=== PATIENT | male | born 1955 | race African-American/Black ===

== ENCOUNTER → 2024-11-24 14:05 | Outpatient (REF) | payer MEDICARE, SELFPAY | LOC: HWRAD 14:05 | PROVIDERS: ATTENDING PHYSICIAN Student in an Organized Health Care Education/Training Program | DX: M79.672 Pain in left foot (principal) | CPT/HCPCS: 73630 ==

== ENCOUNTER → 2025-01-22 13:47 | Outpatient (REF) | payer MEDICARE, SELFPAY ==
--- NOTE | 2025-01-09 10:11 | PN.DIAED02 ---
Referral
DSME Class Series Code: [id number]
Referred For: Diabetes Self-Management Training, Medical Nutrition Therapy, Self-Blood Glucose Monitoring, Long-Term Complication Instruction, Accute Complication Instruction, Continuous Glucose Monitoring, Medication management, Insulin
Instruction, Care Coordination
PHI Release Authorization Form Signed: Yes
Patient Problems:
Current Active Problems
Problem Status Onset
Type 2 diabetes mellitus with unspecified complications
Demographic
(1) Type 2 diabetes mellitus with unspecified complications
Status: Acute Code(s): E11.8 - Type 2 diabetes mellitus with unspecified complications
Patient's primary language-: Maltese
Education: Advanced college degree
Occupation: Retired
- Social
Primary Support Person: Self
Primary Care Takers: Self
Living Arrangements: Self & spouse
- Learning Methods
Preferred Method: Group discussion
Barriers to Learning: None
Glycemic Control
- Blood Glucose Monitoring Assessment
Date: 05/08/25 (FBS: 109 mg/dL)
Blood glucose monitoring at home: No (Educated on a Onetouch meter-pt wants to buy his own)
- Hemoglobin A1c
Date: 01/04/25
A1C Percentage (%): 6.6
Medical History of Diabetes
Previous Diabetes Education: No
Complications/Comorbidity/Specialist: Hypertension (LISINOPRIL 40 MG DAILY), Hyperlipidemia (ROSUSUVASTATIN DAILY)
Measures
- Anthropometrics
Height: 6 ft 2 in
Actual Weight: 228 lb
- Blood Pressure / Pulse
Blood pressure: 129/78
Pulse: 62
- Diabetes Management
Medical Management for Diabetes: Complete physical exam (11/28/24), Dental exam (08/10/24), Dilated eye exam (12/22/24), Foot exam (12/10/24)
Self-Care
- Tobacco Usage
Do you now, or have you ever smoked?: Never smoked
- Alcohol & Drugs Usage
Amount/day: Social Occasions
- Meals & Dining
Meals & Dining: Patient skips meals: Yes, Food Intolerance / Allergy: No, Cultural / Anabaptism Dietary Needs: No
Primary Food Environmental Department Manager: Self
Primary Frozen Food Department Manager: Self
- Physical Activity
Physical Limitation: No
Patient participates in physical Activity: Yes
Activity Types: walking
Duration: > 50 minutes
Frequency: 3-5x per week
- Patient-Self Assessment
Diabetes Knowledge: Poor
Feelings About Diabetes: Fear
General Health: Good
Importance of Health: Extremely
Stress Level: Low
Diabetes Interferes With:: Nothing
Depression Survey Score: 0
- Diabetes Identification
Carries Diabetes Identification: No
Care Plan
- Education Needs
Patient Education Needs: Diabetes disease process, Chronic complications, Acute complications, Medication, Monitoring, Physical activity, Psychosocial Adjustment, Nutritional management, Goal setting & problem solving
Recommended Diabetes Training Program based on assessment: Outpatient Diabetes Education Program
- Plan of Care
Plan of Care:
Germán is attending the December 2024 DSME program along with is who also has diabetes. He was recently diagnosed on 01/04/25 with an A1c of 6.6 %. He has not discussed starting any diabetes medications with his provider at this time. I educated
him on how to monitor his blood sugar along with a monitoring schedule. He was hesitant to obtain the supplies for the OneTouch glucometer using his insurance and preferred to buy one on his own. Discussed over the counter options for glucometers
and encouraged him to contact the office once he purchases his meter if he needs assistance.
--- NOTE | 2025-01-09 12:23 | PN.DIAED04 ---
Education Record
- Education Record
Class Attended: Other (initial dsme assessment)
DSME Class Series Code: [id number]
Instructor: Registered Nurse (Alisha Beckford RN)
Pre-Program Knowledge: Needs review / Assistance
Pre-Test Score (%): 23
Goals
- Goal 1
Being Active: Exercise more often
Goals To Be Evaluated: Exercise more often
- Goal 2
Healthy Eating: Reduce portion sizes
Goals To Be Evaluated: Reduce portion sizes
- Goal 3
Monitoring: Follow monitoring schedule
Goals To Be Evaluated: Follow monitoring times
--- NOTE | 2025-01-24 14:42 | PN.DIAED14 ---
This is to notify you that your patient with diabetes, JIM ESPINOSA ( 1955), has enrolled in our diabetes self-management classes that are being held at [facility].
These classes will include an introduction to diabetes, diet, medication, exercise and prevention of complications. At the end of our class series, you will receive a report of your patient's participation and progress for your records.
Please contact me at the Diabetes Center, , if there is any particular information regarding your patient that might be helpful to me.
Sincerely,
Arie TREJO-,[facility]
--- NOTE | 2025-01-24 14:43 | PN.DIAED04 ---
Education Record
- Education Record
Class Attended: Class 1
DSME Class Series Code: [id number]
Instructor: Nurse Practitioner (MAYA Sun)
Class Curriculum:
Outpatient Diabetes Education Program:
Class 1 (120 minutes)
Describe the diabetes disease process and treatment options
Diabetes management
Develop personal strategies to promote health and behavior change
Integrate psychosocial adjustment for daily living
Monitor blood glucose and other parameters. Interpret and use the results for self-management decision making
Prevent, detect, and treat acute complications
Class Length (mins): 120
Post-Class 1 Test Score (%): 94
== END ==
LOC: DES 13:47
PROVIDERS: ATTENDING PHYSICIAN Student in an Organized Health Care Education/Training Program
DX: E11.9 Type 2 diabetes mellitus without complications (principal)
CPT/HCPCS: 99078

== ENCOUNTER → 2025-01-29 10:17 | Outpatient (REF) | payer MEDICARE, SELFPAY ==
--- NOTE | 2025-01-30 15:47 | PN.DIAED04 ---
Education Record
- Education Record
Class Attended: Class 2
DSME Class Series Code: [id number]
Instructor: Registered Dietitian (Amparo Queen, RD, LDN, CDE)
Class Curriculum:
Outpatient Diabetes Education Program:
Class 2 (120 minutes)
Incorporate nutritional management into lifestyle
Understanding nutritional value
Understanding carbohydrate counting
Class Length (mins): 120
== END ==
LOC: DES 10:17
PROVIDERS: ATTENDING PHYSICIAN Student in an Organized Health Care Education/Training Program
DX: E11.8 Type 2 diabetes mellitus with unspecified complications (principal)
CPT/HCPCS: 99078

== ENCOUNTER → 2025-02-05 08:27 | Outpatient (REF) | payer MEDICARE, SELFPAY ==
--- NOTE | 2025-02-06 10:04 | PN.DIAED04 ---
Education Record
- Education Record
Class Attended: Class 3
DSME Class Series Code: [id number]
Instructor: Registered Dietitian (Amparo Queen, RD, LDN, CDE)
Class Curriculum:
Outpatient Diabetes Education Program:
Class 3 (120 minutes)
Incorporate nutritional management into lifestyle
Class Length (mins): 120
== END ==
LOC: DES 08:27
PROVIDERS: ATTENDING PHYSICIAN Student in an Organized Health Care Education/Training Program
DX: E11.8 Type 2 diabetes mellitus with unspecified complications (principal)
CPT/HCPCS: 99078

== ENCOUNTER → 2025-02-12 09:13 | Outpatient (REF) | payer MEDICARE, SELFPAY | LOC: DES 09:13 | PROVIDERS: ATTENDING PHYSICIAN Student in an Organized Health Care Education/Training Program | DX: E11.8 Type 2 diabetes mellitus with unspecified complications (principal) | CPT/HCPCS: 99078 ==

== ENCOUNTER → 2025-02-19 12:24 | Outpatient (REF) | payer MEDICARE, SELFPAY ==
--- NOTE | 2025-02-22 10:11 | PN.DIAED04 ---
Education Record
- Education Record
Class Attended: Class 5
DSME Class Series Code: [id number]
Instructor: Nurse Practitioner (MAYA Sun)
Class Curriculum:
Outpatient Diabetes Education Program:
Class 5 (120 minutes)
Prevent, detect, and treat acute complications
Prevent, detect, and treat chronic complications through risk reduction
Develop personal strategies to address psychosocial issues and concerns
Development of diabetes self-management support plan
Letter to physician with DSMS plan attached sent
Class Length (mins): 120
Post-Test Score (%): 75
Post-Program Assessment
- Post-Program Assessment
Actual Weight: 231 lb
Blood pressure: 130/76
Post-Program Depression Survey Score: 0
Reviewing Previous Goals?: Yes
Pre-Program Depression Survey Score: 0
- Goals 1 Evaluation
Goals To Be Evaluated: Exercise more often
- Goals 2 Evaluation
Goals To Be Evaluated: Reduce portion sizes
- Goals 3 Evaluation
Goals To Be Evaluated: Follow monitoring times
--- NOTE | 2025-02-22 10:12 | PN.DIAED16 ---
This is to notify you that your patient with diabetes, JIM ESPINOSA ( 1955), has attended the entire series of Diabetes Self-Management Education Classes.
Class 1 (120 minutes): Diabetes Overview - monitoring, stress/psychosocial adjustment, support, goal setting
Class 2 (120 minutes): Meal Planning - serving sizes, menu plans
Class 3 (120 minutes): Introduction to Carbohydrate Counting, Analyzing Food Labels
Class 4 (120 minutes): Medication, Exercise and Activity
Class 5 (120 minutes): Sick Day Management, Strategies to Reduce Complications, Problem Solving, Resources
The following behavioral goals were identified:
Exercise more often
Reduce portion sizes
Follow monitoring times
A follow-up call will be made within three to six months to evaluate attainment of these goals and to check post-program Hemoglobin A1c and overall progress. All class participants are encouraged to contact me if I can be any further assistance in
learning how to manage their diabetes.
Sincerely,
Arie TREJO-, [facility]
== END ==
LOC: DES 12:24
PROVIDERS: ATTENDING PHYSICIAN Student in an Organized Health Care Education/Training Program
DX: E11.8 Type 2 diabetes mellitus with unspecified complications (principal)
CPT/HCPCS: 99078

== ENCOUNTER 2025-09-08 23:46 | Inpatient (IN) | payer MEDICARE, SELFPAY ==
[2025-09-08 19:15] VITALS: BP 120/84
[2025-09-08 19:39] LABS: Hematocrit 44.9 % (39.0-52.0); Hemoglobin 15.4 g/dL (13.0-18.0); Mean Corp Hgb Conc. 34.3 g/dL (33.0-37.0); Mean Corpuscular Volume 78.5 fL (80.0-94.0); Nucleated Red Blood Cells % 0 % (-); Red Cell Dist. Width 13.5 % (11.5-14.5)
[2025-09-08 19:42] LABS: Urine Character Clear (Clear)
[2025-09-08 19:50] LABS: ALT (SGPT) 29 U/L (0-50); AST (SGOT) 33 U/L (17-59); Albumin 3.9 g/dl (3.5-5.0); Alkaline Phosphatase 86 U/L (38-126); Blood Urea Nitrogen 13 mg/dl (9-20); Calcium 9.7 mg/dl (8.4-10.2); Carbon Dioxide 26 mmol/L (22-30); Chloride 105 mmol/L (98-107); Glucose 140 mg/dl (70-99); Potassium 4.3 mmol/L (3.5-5.1); Sodium 138 mmol/L (135-145); Total Protein 7.3 g/dl (6.3-8.2); eGFR > 60.00
[2025-09-08 20:00] LABS: Platelet Count 126 10^3/uL (130-400)
[2025-09-08 20:47] LABS: Urine Squamous Cell 0-2 /LPF (Few)
--- NOTE | 2025-09-08 21:16 | ED.GENMED ---
History of Present Illness
General
Chief Complaint: Male Genito-Urinary Symptoms
Source: patient
Exam Limitations: none
Time Seen by Provider: 09/08/25 20:58
Nursing documentation reviewed up to this point in time: agreed with
History of Present Illness
History of Present Illness:
The patient is a 69-year-old man reports increased frequency and burning with urination several days ago. Patient was evaluated by his primary care doctor and started on Bactrim 3 days ago. Patient has completed 5 doses and is now gradually more
nauseous and spiked a fever today. He denies vomiting. His reports that he has had a decreased appetite and increased sleepiness. He denies any specific areas of severe back pain or lower abdominal pain.
Past History
Past History
ED Past Medical History: HTN
ED Past Surgical History: Orthopedic (Knee)
Social History
Tobacco: Non-smoker
Alcohol: Occasional
Drug: None
Personal:
Living: with family
Employment: Employed
Family History
Family History: Other (Noncontributory)
Review of Systems
Review of Systems
Allergies reviewed?: Yes
All Other Systems: ROS reviewed and negative except as documented in HPI and ROS
Constitutional: Reports fever, fatigue and chills
EENT: Reports no symptoms
Respiratory: Reports no symptoms
Cardiac: Reports no symptoms
ABD/GI: Reports no symptoms
: Reports dysuria and frequency
Musculoskeletal: Reports no symptoms
Skin: Reports no symptoms
Neurological: Reports no symptoms
Endocrine: Reports no symptoms
Hematologic/Lymphatic: Reports no symptoms
Psychiatric: Reports no symptoms
Phy Exam
Physical Exam
Physical Exam:
Physical Exam
General: no apparent distress, not acutely ill
Neck: supple. no meningeal signs. normal psoterior pharynx
Heart: s1/s2 regular rate and rhythm, no murmur. equal radial pulses.
Lungs: no acute respiratory distress. clear bilaterally
Abdomen: normal bowel sounds. not tender. no CVAT
Neuro: alert and oriented. no focal neurological deficits
Skin: no rash
Psychiatric: well kept. interactive and cooperative
Extremities: no edema. no calf tenderness. negative homans. good distal pulses
Sepsis
Sepsis Screening
Sepsis Assessment: Sepsis Ruled Out
Sepsis Screen
Sepsis Screen: Sepsis Ruled Out
Date: 09/08/25
Time: 22:37
Course
Orders/Labs/Results
Orders:
Orders
09/08/25 19:18
IV Insert/Care/Rem.- Treatment PRN
09/08/25 19:25
Complete Blood Count/With Diff Urgent
Comprehensive Metabolic Panel Urgent
Urinalysis Reflex To Culture Urgent
Date Specimen was Collected: 09/08/25
Time Specimen was Collected: 19:18
Urine Microscopic Reflex Cult Urgent
Urine Culture Urgent
MELBA Source: U
Specimen Description:
Date Specimen was Collected: 09/08/25
Time Specimen was Collected: 19:18
09/08/25 21:26
CT Abd/pel Without Iv Or Oral Urgent
Comment:
Reason For Exam: UTI, fever
09/08/25 21:27
Acetaminophen [Tylenol] 1,000 mg PO NOW STA
Abnormal Lab Results
09/08/25
19:25
WBC 16.5 H 10^3/uL
(4.8-10.8)
MCV 78.5 L fL
(80.0-94.0)
MCH 26.9 L pg
(27.0-31.0)
Plt Count 126 L 10^3/uL
(130-400)
MPV 11.3 H fL
(7.4-10.4)
Abs Immat Gran (auto) 0.1 H 10^3/uL
(0-0.05)
Absolute Neuts (auto) 12.8 H 10^3/uL
(1.4-6.5)
Absolute Monos (auto) 1.7 H 10^3/uL
(0.1-0.6)
Immature Gran % 0.9 H %
(0-0.5)
Neutrophils % 77.9 H %
(42.2-75.2)
Lymphocytes % 9.6 L %
(20.5-51.1)
Monocytes % 10.5 H %
(1.7-9.3)
Glucose 140 H mg/dl
(70-99)
Ur Occult Blood Reflex 4+ A
(Negative)
Leukocyte Esterase Rfl 3+ A
(Negative)
Urine RBC 7-10 A /HPF
(0-2)
Urine WBC (Reflex) 11-15 A /HPF
(0-5)
Urine Bacteria (Reflex) Few A
(Negative)
Urine Albumin (Reflex) 2+ A
(Neg - Trace)
09/08/25 19:25
09/08/25 19:25
Vital Signs
Initial and Last Documented VS:
Initial Vital Signs
Temp Pulse Resp BP Pulse Ox
101.4 F H 91 18 120/84 94
09/08/25 19:15 09/08/25 19:15 09/08/25 19:15 09/08/25 19:15 09/08/25 19:15
Last Documented Vital Signs
Temp Pulse Resp BP Pulse Ox
101.4 F H 81 18 118/86 94
09/08/25 19:15 09/08/25 21:42 09/08/25 21:42 09/08/25 21:41 09/08/25 21:42
MDM/Problems Addressed
Differential Diagnosis Includes:
Acute UTI, acute pyelonephritis, infected kidney stone
MDM/Problems Addressed:
Patient presents with fever and urinary frequency
Chronic conditions affecting care: HTN
Acute Exacerbation and/or Progression of Chronic Illness:
Patient's blood pressure is well-controlled
*Radiology
Radiology exam reviewed: radiology read reviewed
*Pulse Oximetry
SaO2: 94
Oxygen Mode of Delivery: Room air
Patient hypoxic: no
*EKG
Interpreted by ED Provider?: NA
*Health Safety Engineer Interpretation
Rate: Health Safety Engineer- N/A
*Critical Care Note
Total Time (30-74mins, 75-104mins- exclusive of procedures): Not Applicable
Data Reviewed
Review of Other/Old Records Reveals: Radiology Studies (CT abdomen pelvis reviewed from 2020 with no mention of presence of kidney stone )
Source: patient and spouse
Patient Management
Social determinants of health affecting care: Living situation and Strong social support
Discussion with other providers: Hospitalist
ED Attending Note
-
Portions of this chart may have been created with voice recognition software.� Occasional wrong word or��sound alike� substitutions may have occurred due to the inherent limitations of voice recognition software.
Discharge Plan
Departure
Patient Disposition: Admit
Date of Disposition: 09/08/25
Time of Disposition: 22:29
Admit to: Med/Surg
Presentation/result/management discussed w/ accepting MD/DO: Hospitalist
Patient with high blood pressure during this ER visit?: No
Condition: Good
Covid-19: Not Applicable
Discharge Problem:
Acute UTI, Fever
Prescriptions:
No Action
lisinopril 20 MG tablet
20 mg PO DAILY
methylprednisolone [Medrol (Ab)] 4 mg tablets,dose pack
See Rx Instructions .ROUTE .COMPLEX Qty: 21 0RF
Rx Instructions:
orally per package directions
albuterol sulfate [ProAir HFA] 90 mcg/actuation Hfa Aerosol Inhaler
1 puff INHALATION Q4HPRN PRN (Reason: shortness of breath) Qty: 8.5 0RF
amoxicillin-pot clavulanate 875-125 mg tablet
1 tab PO BID Qty: 14 0RF
Referrals:
Sen Maravilla, DO [Family Provider, Family Practice]
Interventions
Interventions:
*Risk Screen - Suicide Last Done: 09/08/25 19:15
*General Assessment Last Done: 09/08/25 21:34
*Neglect/Abuse Screening Last Done: 09/08/25 21:42
*ED- Fall Risk Assessment Last Done: 09/08/25 21:34
*ED COVID-19 Vaccine History Last Done: 09/08/25 21:34
*ED Influenza Vaccine History Last Done: 09/08/25 21:34
ED-Male Genitourinary Assessment Last Done: 09/08/25 21:34
Discharge Date and Time
Print Language: NICARAGUAN
[2025-09-08] MEDS: TYLENOL 1000 MG PO (21:33)
[2025-09-08 21:34] VITALS: BMI 29.6
[2025-09-08 21:41] VITALS: BP 118/86
[2025-09-08 22:38] VITALS: BP 121/78
[2025-09-08] MEDS: NSS 1000 IV (22:46)
[2025-09-08 23:00] VITALS: BP 112/86
--- NOTE | 2025-09-08 23:34 | HPS.HSE ---
Family Physician
-
Family Physician: Sen Maravilla, DO
Chief Complaint
-
urinary symptoms
History of Present Illness
This is a 69-year-old male with past medical history notable for hypertension presents to the emergency department with reports of increased urinary frequency and dysuria.
Reports that symptoms started about 1 week ago. Reports sudden onset of urinary frequency and urgency and a fever last week Wednesday. Was seen at primary care and started on Bactrim. He completed 5 doses and developed more nausea. Spouse
reports decreasing appetite. He had a fever today. He denies any vomiting. He has been having decreased appetite and increase sleepiness. He denies flank pain. He denies abdominal pain. He denies any prior history of kidney stones.
In the emergency department he had a temp of 101.4, blood pressure was 1 2/80 with a pulse rate of 81 and he was satting 97% on room air.
CBC shows a white count of 7.5, hemoglobin platelets were normal. Electrolytes, BUN, creatinine were normal.
UA was markedly positive.
CT of the abdomen pelvis shows cystitis, and no nephrolithiasis or urinary obstruction noted. There is severe prostatomegaly.
Medical History
Past Medical History
Past Medical History: Reports Other (BPH, obstructive sleep apnea)
Past Surgical History: Reports None
Social History
Tobacco: Non-smoker
Alcohol: None
Drug: None
Personal:
Living: With Family
Family History
Family History: Not pertinent
Allergies / Home Medications
Allergies reflects when Allergies were last updated in [employer].
Home Medications with original date entered in [employer]
Allergy/Medication List:
Allergies
Allergy/AdvReac Type Severity Reaction Status Date / Time
No Known Allergies Allergy Verified 02/28/23 05:08
Home Medications
lisinopril 20 mg tablet 20 mg PO DAILY 03/09/18
Review of Systems
-
Constitutional: Reports Fever
EENT: Reports No Symptoms
Respiratory: Reports No Symptoms
Cardiac: Reports No Symptoms
Abdomen/GI: Reports No Symptoms
: Reports Dysuria and Frequency
Musculoskeletal: Reports No Symptoms
Skin: Reports No Symptoms
Neurological: Reports No Symptoms
Endocrine: Reports No Symptoms
Hematologic/Lymphatic: Reports No Symptoms
Psych: Reports No Symptoms
Physical Exam
Vital Signs
Vital Signs
Temp Pulse Resp BP Pulse Ox
101.4 F H 81 18 112/86 97
09/08/25 19:15 09/08/25 21:42 09/08/25 21:42 09/08/25 23:00 09/08/25 23:15
Physical Exam
General: Well Developed, Well Nourished and No Apparent Distress
HEENT: NormoCephalic, Moist mucous membranes and Atraumatic
Respiratory: Clear
Cardiac: S1/S2 and Regular Rhythm; No Murmur or Rub
GI: Soft, Non Tender, Non Distended and Normal Bowel Sounds; No Organomegaly
Rectal: Deferred by Provider
Genito-urinary: No costovertebral tender
Musculoskeletal: No Clubbing, No Cyanosis and No Edema
Skin: No Rash
Neuro: AO x 3 and Nonfocal/grossly intact
Psych: Calm
Laboratory Results
-
09/08/25 19:25
09/08/25 19:25
Laboratory Results
Total Bilirubin 0.8 mg/dl (0.2-1.3) 09/08/25 19:25
AST 33 U/L (17-59) 09/08/25 19:25
ALT 29 U/L (0-50) 09/08/25 19:25
Alkaline Phosphatase 86 U/L (38-126) 09/08/25 19:25
Data Reviewed
-
CT Scan: Report Reviewed by me
Lab Data: Labs Reviewed by me
Old Records: Reviewed
Impression/Plan
-
IMPRESSION:
69-year-old with past medical history of hypertension, BPH presenting to the emergency department with dysuria and a fever spike. He has been on oral antibiotics for about 5 days for UTI. Did this associated with some nausea but no vomiting. He
is febrile here to 101.4 but otherwise hemodynamically stable. White count is 16.5. Electrolytes BUN/creatinine were normal. UA remains positive. CT of the abdomen pelvis shows nothing acute but does shows profound prostatomegaly, no evidence of
hydronephrosis or stones.
PLAN:
Cystitis-possibly prostatitis but no symptoms consistent with other and his CT finding of prostatomegaly. Cystitis is likely on the basis of his BPH.
- Admit to [facility]
-Urine and blood cultures sent
-Will treat with IV cefepime
-Antipyretics, pain control and antiemetics
-Consider starting tamsulosin
-Continue his lisinopril for now
# Prostate -patient sees Dr. Manley and has had routine digital rectal exams and has been told that his prostate was fine. However CT scan shows significant/severe prostatomegaly.
- Ambulatory antibiotics for now
- Bladder scan for retention, patient denies typical signs of BPH such as nocturia except recently with urinary frequency in the setting of his infection.
- Follow-up with outpatient urology
- Consider statin therapy if symptomatic despite antibiotics.
DVT prophylaxis�Lovenox subcu
CODE STATUS�full code
[2025-09-09] VITALS: BP 114/86
[2025-09-09] MEDS: STERILE WATER FOR INJECTION 10 ML IV ×5 (00:09→23:15)
[2025-09-09] MEDS: MAXIPIME 2000 MG IV (00:09)
[2025-09-09] MEDS: FLUSH (NSS) 1 FLUSH IV ×2 (00:13→23:15)
[2025-09-09 00:42] LABS: COVID-19 Antigen Negative (Negative)
[2025-09-09 01:39] VITALS: BP 139/89; BMI 29.1
[2025-09-09] MEDS: LR 1000 IV (02:06)
[2025-09-09] MEDS: MAXIPIME 1000 MG IV ×4 (05:17→23:15)
[2025-09-09 05:56] LABS: Hematocrit 40.9 % (39.0-52.0); Hemoglobin 13.9 g/dL (13.0-18.0); Mean Corp Hgb Conc. 34.0 g/dL (33.0-37.0); Mean Corpuscular Volume 79.3 fL (80.0-94.0); Platelet Count 122 10^3/uL (130-400); Red Cell Dist. Width 13.4 % (11.5-14.5)
[2025-09-09 06:18] LABS: Blood Urea Nitrogen 13 mg/dl (9-20); Calcium 8.9 mg/dl (8.4-10.2); Carbon Dioxide 25 mmol/L (22-30); Chloride 107 mmol/L (98-107); Estimated Creatinine Clearance 80 ml/min; Glucose 202 mg/dl (70-99); Potassium 4.0 mmol/L (3.5-5.1); Sodium 136 mmol/L (135-145); eGFR > 60.00
[2025-09-09 07:00] VITALS: BP 111/72
[2025-09-09] MEDS: ZESTRIL 20 MG PO (08:30)
--- NOTE | 2025-09-09 11:18 | W.PN.HOSP.TC ---
Today's Communication/Plan
-
Continue IV cefepime and follow cultures
Assessment / Plan
Assessment / Plan
#Sepsis secondary to UTI
#Prostamegaly
- Question prostatitis though certain about urinary infection
- Presented with dysuria, leukocytosis, fever with positive UA
- Urine culture obtained as well as blood cultures; started on IV cefepime
- Remains with some dysuria today, WBC downtrending and no more fevers
- Continue IV cefepime, follow urine culture and narrow as able
- Trend CBC and temperature curve
#BPH
- Follows with Dr. Manley in the outpatient setting, no signs of urine retention
- Suspect urinary frequency more associated with his active infection
- Follow-up OP for consideration of finasteride +/- tamsulosin
#Primary hypertension
- Home regimen includes lisinopril 20 mg daily
- Blood pressure currently adequate on home regimen
- No history of hypertensive systemic disease
#Obstructive sleep apnea
- No known history of pulmonary hypertension
- Will need to confirm CPAP compliance while here
Diet: Regular
Thromboprophylaxis: SQ Lovenox
CODE STATUS: Full code
Disposition: Likely discharge home in 48 hours
Anticipated Discharge: 24 - 48 hours
Subjective/Interval History
-
Date of Service: September 09, 2025
Seen and examined at bedside. No acute events reported overnight. AFVSS this morning
Patient states he feels better today but still with some urinary symptoms. WBC downtrending, urine culture pending
Denies any new complaints including chest pain, dyspnea, gastrointestinal symptoms, bleeding or bruising
Objective Data
-
Labs:
Laboratory Results
09/09/25
05:22
WBC 11.7 H
Hgb 13.9
Hct 40.9
Plt Count 122 L
Sodium 136
Potassium 4.0
Chloride 107
Carbon Dioxide 25
BUN 13
Creatinine 1.0
Glucose 202 H
Calcium 8.9
Vital Signs:
Vital Signs
Temp Pulse Resp BP Pulse Ox
99 F 90 12 111/72 94
09/09/25 07:00 09/09/25 07:00 09/09/25 07:00 09/09/25 07:00 09/09/25 07:00
I&O
09/08/25 09/09/25 09/10/25
06:59 06:59 06:59
Intake Total 615 / 615
Output Total 375 / 375
Balance 240 / 240
Review of Systems
-
History Source: Patient
All other systems: Reviewed and negative
Physical Exam
-
General: Well Developed, Well Nourished and No Apparent Distress
HEENT: Normocephalic, Atraumatic and Moist Mucous Membranes
Respiratory: Clear to Auscultation and Non Labored Respirations; Negative Accessory Resp Muscle Use
Cardiac: Regular Rhythm and S1/S2; Negative Murmur, Rub or Gallop
GI: Soft, Nontender, Nondistended and Normal Bowel Sounds
Musculoskeletal: No Clubbing, No Cyanosis and No Edema
Skin: Warm and Dry; Negative Rash
Neuro: AO x 3, Nonfocal/Grossly Intact and Central Nerve's Intact
Psych: Calm
Data Reviewed
-
Labs: Labs Reviewed by me, Discussed with Physician (Urologist, courtesy to patient) and Discussed with Patient
[2025-09-09 15:00] VITALS: BP 114/69
--- NOTE | 2025-09-09 15:39 | CM ---
Initial assessment completed with patient who lives with his in a 2 story home plus basement, B/B on 2nd, 1/2 bath on 1st, no steps. 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 No DME or in-home services. Discharge POC: Anticipate
home with no needs.
[2025-09-09] MEDS: TYLENOL 650 MG PO ×2 (16:13→23:21)
[2025-09-09] MEDS: LOVENOX 40 MG SC (17:20)
[2025-09-09 23:22] VITALS: BP 149/84
[2025-09-10] MEDS: STERILE WATER FOR INJECTION 10 ML IV ×2 (05:16→11:40)
[2025-09-10] MEDS: MAXIPIME 1000 MG IV ×2 (05:17→11:40)
[2025-09-10 07:20] VITALS: BP 110/74
[2025-09-10] MEDS: ZESTRIL 20 MG PO (08:29)
--- NOTE | 2025-09-10 08:54 | W.PN.HOSP.TC ---
Today's Communication/Plan
-
Discharge
Levofloxacin to complete 5 days
Follow-up with urologist on Wednesday in office
Assessment / Plan
Assessment / Plan
#Sepsis secondary to UTI
#Prostamegaly
- Question prostatitis though certain about urinary infection
- Presented with dysuria, leukocytosis, fever with positive UA; urine culture negative
- Remains with some dysuria today, WBC downtrending and no more fevers
- Has had clinical improvement with IV cefepime; blood cultures negative
- Will plan for course of empiric levofloxacin at discharge, for 5d total of Tx
- Trend CBC and temperature curve
#BPH
- Follows with Dr. Manley in the outpatient setting, no signs of urine retention
- Suspect urinary frequency more associated with his active infection
- Follow-up OP for consideration of finasteride +/- tamsulosin
#Primary hypertension
- Home regimen includes lisinopril 20 mg daily
- Blood pressure currently adequate on home regimen
- No history of hypertensive systemic disease
#Obstructive sleep apnea
- No known history of pulmonary hypertension
- Will need to confirm CPAP compliance while here
Diet: Regular
Thromboprophylaxis: SQ Lovenox
CODE STATUS: Full code
Disposition: Discharge home today with follow-up in Dr. Manley's office on this Wednesday
Anticipated Discharge: Today
Subjective/Interval History
-
Date of Service: September 10, 2025
Seen and examined at the bedside. No acute events reported overnight. AFVSS this morning
White cell count remains normal, no fevers. Urine culture without any growth upon final results
Patient denies any complaints today. His dysuria and lower abdomen discomfort have resolved
Objective Data
-
Labs:
Laboratory Results
09/10/25
08:53
WBC Pending
Hgb Pending
Hct Pending
Plt Count Pending
Sodium Pending
Potassium Pending
Chloride Pending
Carbon Dioxide Pending
BUN Pending
Creatinine Pending
Glucose Pending
Calcium Pending
Vital Signs:
Vital Signs
Temp Pulse Resp BP Pulse Ox
98.7 F 90 18 110/74 92
09/10/25 07:20 09/10/25 08:29 09/10/25 07:20 09/10/25 08:29 09/10/25 07:20
I&O
09/09/25 09/10/25 09/11/25
06:59 06:59 06:59
Intake Total 615 / 615 600 / 600
Output Total 375 / 375 480 / 480
Balance 240 / 240 120 / 120
Review of Systems
-
History Source: Patient
All other systems: Reviewed and negative
Physical Exam
-
General: Well Developed, Well Nourished and No Apparent Distress
HEENT: Normocephalic, Atraumatic, Moist Mucous Membranes and Anicteric
Respiratory: Clear to Auscultation and Non Labored Respirations; Negative Accessory Resp Muscle Use
Cardiac: Regular Rhythm and S1/S2; Negative Murmur, Rub or Gallop
GI: Soft, Nontender, Nondistended and Normal Bowel Sounds
Genito-urinary: No Costovertebral Tender and Other (No suprapubic or flank discomfort)
Musculoskeletal: No Clubbing, No Cyanosis and No Edema
Skin: Warm and Dry; Negative Rash
Neuro: AO x 3, Nonfocal/Grossly Intact and Central Nerve's Intact
Psych: Calm
Data Reviewed
-
Labs: Labs Reviewed by me, Discussed with Physician (Urologist ) and Discussed with Patient
[2025-09-10 09:20] LABS: Hematocrit 44.1 % (39.0-52.0); Hemoglobin 15.2 g/dL (13.0-18.0); Mean Corp Hgb Conc. 34.5 g/dL (33.0-37.0); Mean Corpuscular Volume 79.2 fL (80.0-94.0); Nucleated Red Blood Cells % 0 % (-); Platelet Count 123 10^3/uL (130-400); Red Cell Dist. Width 13.6 % (11.5-14.5)
[2025-09-10 09:45] LABS: Blood Urea Nitrogen 12 mg/dl (9-20); Calcium 8.9 mg/dl (8.4-10.2); Carbon Dioxide 24 mmol/L (22-30); Chloride 105 mmol/L (98-107); Estimated Creatinine Clearance 89 ml/min; Glucose 244 mg/dl (70-99); Potassium 4.0 mmol/L (3.5-5.1); Sodium 136 mmol/L (135-145); eGFR > 60.00
[2025-09-10 11:57] VITALS: BP 123/68
--- NOTE | 2025-09-10 12:24 | W.DCSUMMARY ---
Discharge Summary
Discharge Data
Date of Admission: 09/08/25
Date of Discharge: 09/10/25
Total time spent discharging patient (in min): 34
-
Pending Results: No
Hospital Course
Discharging physician: Alberto Campos DO
Discharge disposition: Home
Primary hospital diagnoses:
Sepsis secondary to UTI
Possible prostatitis
Possible passed kidney stone
Prostamegaly
Chronic discharge diagnoses:
Primary hypertension
BPH
ALCIDES
Hospital course:
69-year-old male that presented to the hospital with urinary symptoms that started within 1 week of arrival. Reported sudden onset urinary frequency and urgency with fevers at home. Was seen at primary care and received 5 doses of Bactrim without
improvement. Upon arrival had temperature of 101.4 �F, leukocytosis with WBC 16.5. Urinalysis was indeterminate on arrival with 4+ blood, 3+ leukocyte esterase, though only 10-15 WBCs per hpf and few bacteria. Blood and urine cultures were
obtained and he was started empirically on IV cefepime in the ED. Blood cultures negative, urine culture also ultimately returned negative. Question of passed stone versus false negative culture, with his symptoms and fever/leukocytosis at time of
arrival decision was made to complete course of antibiotics. He was transition to levofloxacin 750 mg daily to complete 7-day course of antibiotics. Had previously scheduled office visit with neurologist on Wednesday 09/12 that we encouraged him
to maintain.
Pertinent imaging findings:
CT abdomen/pelvis without contrast (09/08/2025)
IMPRESSION:
1. Questionable cystitis. No other significant acute abnormality identified in the abdomen or pelvis, within the limits of unenhanced CT
2. Severe prostatomegaly.
Procedures: N/A
Follow-up:
Urologist on 09/12, office visit previously scheduled
Family doctor within 1 week of discharge
Discharge Plan
-
Patient Disposition: Home (Routine Discharge)
Discharge Diagnosis/Procedures: Urinary tract infection
Negative urine culture (possible you had passed kidney stone passage)
BPH
Condition: Good
Diet: No restrictions
Activity: As tolerated
Driving Restrictions: As prior to admission
Bathing Restrictions: None
Blood Work: Follow-up with your family doctor for repeat labs on a routine basis
Referrals:
Daniel Manley MD [Active, Urology] - in two to three days
Referral Note: Attend your prescheduled office visit on Wednesday
Sen Maravilla DO [Family Provider, [facility]] - in less than 1 week
Additional Discharge Medication Instructions: Take levofloxacin daily for 5 more days after discharge unless told to stop by your urologist at your office visit
Prescriptions:
New
levofloxacin 750 mg tablet
750 mg PO Q24H 5 Days Qty: 5 0RF
Continued
lisinopril 20 MG tablet
20 mg PO DAILY
albuterol sulfate [ProAir HFA] 90 mcg/actuation Hfa Aerosol Inhaler
1 puff INHALATION Q4HPRN PRN (Reason: shortness of breath) Qty: 8.5 0RF
Discontinued
methylprednisolone [Medrol (Ab)] 4 mg tablets,dose pack
See Rx Instructions .ROUTE .COMPLEX Qty: 21 0RF
Rx Instructions:
orally per package directions
amoxicillin-pot clavulanate 875-125 mg tablet
1 tab PO BID Qty: 14 0RF
Discharge Orders:
Discharge Patient (As Directed); Ordered 09/10/25
Ordered By: Alberto Campos
Discharge Date and Time
Discharge Date/Time: 09/10/25 12:18
Print Language: ARMENIAN
== END 2025-09-10 12:18 | disposition home or self-care (01) | DRG 872 ==
LOC: 4 EAST ACU 23:46
PROVIDERS: ADMITTING PHYSICIAN Internal Medicine; ATTENDING PHYSICIAN Internal Medicine; EMERGENCY PHYSICIAN Emergency Medicine; FAMILY PHYSICIAN Student in an Organized Health Care Education/Training Program
DX: A41.9 Sepsis, unspecified organism (principal); N39.0 Urinary tract infection, site not specified; N40.0 Benign prostatic hyperplasia without lower urinary tract symptoms; I10 Essential (primary) hypertension; G47.33 Obstructive sleep apnea (adult) (pediatric); Z79.899 Other long term (current) drug therapy; Z11.52 Encounter for screening for COVID-19
CPT/HCPCS: 74176; 80048; 80053; 81003; 81015; 83605; 85025; 85027; 87040; 87086; 87502; 87811; 96361; 96374; 99284